=== PATIENT | male | born 1995 | race American Indian/Alaskan Native ===

== ENCOUNTER 2016-10-17 23:32 | Emergency (ER) | payer SELFPAY ==
[~2016-10-17] VITALS: Ht 172.7 cm; Wt 64.0 kg
[2016-10-18] MEDS ORDERED: AMOXICILLIN 500 MG (POLYMOX) CAP PO STA (01:06)
[2016-10-18] MEDS ORDERED: AMOX500T2 PO (01:18)
--- NOTE | 2016-10-18 01:18 | ED General ---
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 He denies any cough. He has been taking Tylenol and ibuprofen but symptoms seemed to return. He was seen at the [employer] [facility] and reports he was instructed to take ibuprofen but no other instructions were provided. Allergies and Home Medications Allergies Coded Allergies: No Known Drug Allergies (Unverified , 10/17/16) Home Medications Amoxicillin 500 Mg Tablet #40 1,000 MG PO BID Prescribed by: NASEEM DELA CRUZ on 10/18/16 0118 Constitutional: see HPI EENTM: see HPI Respiratory: no symptoms reported Cardiovascular: no symptoms reported Gastrointestinal: no symptoms reported Genitourinary: no symptoms reported Musculoskeletal: no symptoms reported Skin: no symptoms reported Psychiatric/Neurological: See HPI Hematologic/Lymphatic: No Symptoms Reported Past Gcxxenw-Gpbbaj-Bvddvz Hx Patient Social History Alcohol Use: Denies Use Recreational Drug Use: No Smoking Status: Current Everyday Smoker Type Used: Cigarettes 2nd Hand Smoke Exposure: Yes Recent Foreign Travel: No Contact w/Someone Who Travel: No Recent Infectious Disease Expo: No Recent Hopitalizations: No Immunizations Up To Date Tetanus Booster (TDap): Less than 5yrs PED Vaccines UTD: Yes Seasonal Allergies Seasonal Allergies: No Surgeries HX Surgeries: Yes Surgeries: Appendectomy Respiratory Hx Respiratory Disorders: No Cardiovascular Hx Cardiac Disorders: No Neurological Hx Neurological Disorders: No Reproductive System Hx Reproductive Disorders: No Genitourinary Hx Genitourinary Disorders: No Gastrointestinal Hx Gastrointestinal Disorders: No Musculoskeletal Hx Musculoskeletal Disorders: No Endocrine Hx Endocrine Disorders: No HEENT HX ENT Disorders: No Cancer Hx Cancer: No Psychosocial Hx Psychiatric Problems: No Integumentary HX Skin/Integumentary Disorder: No Blood Transfusions Hx Blood Disorders: No Physical Exam Vital Signs Vital Sign - Last 12Hours 10/17/16 23:48 Temp 98.9 Pulse 94 Resp 18 B/P 148/96 Pulse Ox 98 O2 Delivery Room Air Capillary Refill : Less Than 3 Seconds General Appearance: No Apparent Distress WD/WN HEENT: PERRL/EOMI TMs Normal Normal ENT Inspection Pharyngeal Erythema Neck: Supple Lymphadenopathy (L) Lymphadenopathy (R) Respiratory: Lungs Clear Normal Breath Sounds No Accessory Muscle Use No Respiratory Distress Cardiovascular: Regular Rate, Rhythm No Edema No Murmur Gastrointestinal: Normal Bowel Sounds Non Tender Soft Extremity: Normal Inspection Neurologic/Psychiatric: Alert Oriented x3 No Motor/Sensory Deficits Normal Mood/Affect collar baster jumpbasting II-XII Norm as Tested Skin: Normal Color Warm/Dry Progress/Results/Core Measures Results/Orders Lab Results Laboratory Tests Test 10/18/16 00:48 Range/Units Group A Streptococcus Screen NEGATIVE NEGATIVE Micro Results Microbiology 10/17/16 Influenza Types A,B Antigen (POOL) - Final, Complete My Orders Orders-NASEEM RAZO MD Influenza A And B Antigens (10/17/16 23:46) Rapid Strep A Screen (10/18/16 00:47) Amoxicillin Capsule (Polymox Capsule) (10/18/16 01:06) Vital Signs/I&O Vital Sign - Last 12Hours 10/17/16 10/17/16 10/18/16 23:48 23:48 01:23 Temp 98.9 98.0 Pulse 94 88 Resp 18 18 B/P 148/96 Pulse Ox 98 99 O2 Delivery Room Air Room Air Blood Pressure Mean: 113 Progress Note : Progress Note Rapid strep and influenza screens were negative. Because of patient's persistent sore throat and pharyngeal erythema, and bodyaches were prescribed. The first dose of amoxicillin was provided in the ER. I advised him to seek testing for mononucleosis if antibiotics do not resolve his problem. Departure Impression Impression: Primary Impression: Pharyngitis Qualified Code: J02.9 - Acute pharyngitis, unspecified Additional Impressions: Fever Qualified Code: R50.9 - Fever, unspecified Dizziness Disposition: 01 HOME, SELF-CARE Condition: Stable Departure-Patient Inst. Decision time for Depature: 01:13 Referrals: NO,LOCAL PHYSICIAN (PCP) Primary Care Physician Patient Instructions: Sore Throat in Adults Add. Discharge Instructions: Complete your antibiotics as prescribed. Your throat culture should result in about 48 hours. You may follow-up with the [facility] to review results. If you are not improving on the antibiotics, consider getting tested for mononucleosis at the [facility]. Return to emergency room if symptoms worsen. You may take ibuprofen up to 600 mg every 6 hours as needed for pain. Add Tylenol (acetaminophen) up to 1000 g every 6 hours as needed for additional pain relief. All discharge instructions reviewed with patient and/or family. Voiced understanding. Scripts Amoxicillin 500 Mg Tablet1,000 Mg PO BID #40 TAB Prov:NASEEM RAOZ MD 10/18/16 NASEEM RAZO MD Oct 18, 2016 01:18
[2016-10-18 01:23] VITALS: BP 136/88
== END 2016-10-18 01:23 | disposition home or self-care (01) ==
LOC: ER 23:37
DX: J02.9 Acute pharyngitis, unspecified (principal); R50.9 Fever, unspecified; R42 Dizziness and giddiness; F17.210 Nicotine dependence, cigarettes, uncomplicated
CPT/HCPCS: 87430; 87804; 99282

== ENCOUNTER 2016-10-26 14:49 | Emergency (ER) | payer OTHER ==
[~2016-10-26] VITALS: Ht 172.7 cm; Wt 64.0 kg
[~2016-10-26 14:49] MED LIST: AMOX500T2 PO
--- NOTE | 2016-10-26 15:23 | ED Integumentary General ---
General Stated Complaint: RASH Source: patient Exam Limitations: no limitations History of Present Illness Time seen by provider: 15:21 Initial Comments To ER with a diffuse rash that started this morning upon awakening. He finished a course of amoxicillin for 7 days yesterday following a diagnosis of pharyngitis. No fevers and the throat is better. The rash is itchy. Timing/Duration: this morning Severity: mild Location: generalized Possible Cause: no cause identified Allergies and Home Medications Allergies Coded Allergies: No Known Drug Allergies (Unverified , 10/17/16) Home Medications Amoxicillin 500 Mg Tablet #40 1,000 MG PO BID Prescribed by: NASEEM DELA CRUZ on 10/18/16 0118 Constitutional: see HPI EENTM: see HPINo eye pain, No hoarseness, No mouth pain, No mouth swelling, No vision loss Respiratory: no symptoms reportedNo dyspnea on exertion, No orthopnea, No phlegm, No short of breath Cardiovascular: no symptoms reported Genitourinary: no symptoms reported Musculoskeletal: no symptoms reported Skin: see HPI Psychiatric/Neurological: No Symptoms Reported Endocrine: No Symptoms Reported Hematologic/Lymphatic: No Symptoms Reported Past Jsxbjal-Nfidwz-Lxeifz Hx Patient Social History Type Used: Cigarettes 2nd Hand Smoke Exposure: Yes Recent Foreign Travel: No Contact w/Someone Who Travel: No Recent Hopitalizations: No Immunizations Up To Date Tetanus Booster (TDap): Less than 5yrs PED Vaccines UTD: Yes Seasonal Allergies Seasonal Allergies: No Surgeries HX Surgeries: Yes Surgeries: Appendectomy Respiratory Hx Respiratory Disorders: No Cardiovascular Hx Cardiac Disorders: No Neurological Hx Neurological Disorders: No Reproductive System Hx Reproductive Disorders: No Genitourinary Hx Genitourinary Disorders: No Gastrointestinal Hx Gastrointestinal Disorders: No Musculoskeletal Hx Musculoskeletal Disorders: No Endocrine Hx Endocrine Disorders: No HEENT HX ENT Disorders: No Cancer Hx Cancer: No Psychosocial Hx Psychiatric Problems: No Integumentary HX Skin/Integumentary Disorder: No Blood Transfusions Hx Blood Disorders: No Physical Exam Vital Signs Capillary Refill : General Appearance: WD/WN no apparent distress HEENT: PERRL/EOMI normal ENT inspection Neck: non-tender full range of motion Respiratory: no respiratory distress no accessory muscle use Gastrointestinal: non tender soft Neurologic/Psychiatric: alert normal mood/affect oriented x 3 Skin: normal color warm/dry rash (diffuse maculopapular rash) Skin Problem Character: macules, papules Departure Impression Impression: Primary Impression: Adverse drug reaction Qualified Code: T88.7XXA - Unspecified adverse effect of drug or medicament, initial encounter Disposition: 01 HOME, SELF-CARE Condition: Stable Departure-Patient Inst. Decision time for Depature: 15:23 Referrals: NO,LOCAL PHYSICIAN (PCP) Primary Care Physician Patient Instructions: MEDICATION REACTION Add. Discharge Instructions: 1. You should consider herself allergic to amoxicillin from this point on 2. Return to ER for any concerns 3. Use Benadryl [id number] as needed for itching. AURA MATHIS APRN Oct 26, 2016 15:23
[2016-10-26] MEDS ORDERED: diphenhydrAMINE 25 MG TAB (BENADRYL) PO ONE (15:30)
[2016-10-26] MEDS ORDERED: DEXAMETHASONE PF 10 MG/ML (DECADRON) VIAL IM ONE (15:30)
[2016-10-26 15:34] VITALS: BP 145/94
--- OUTSIDE RECORDS SUMMARY | 2016-10-26 16:28 | XMS REPORT | Continuity of Care Document ---
Author Author [facility] Organization [facility] Address Unknown Phone Unavailable Care Team Providers Care Disability Coordinator Name Role Phone NO, LOCAL PHYSICIAN PCP Unavailable Insurance Providers Payer Name Policy Number Subscriber Name Relationship Unknown Advance Directives Directive Response Recorded Date/Time Advance Directives No 10/17/16 11:48pm Resuscitation Status Full Code 10/17/16 11:48pm Chief Complaint and Reason for Visit Chief Complaint Cough/Cold/Flu Symptoms Reason for Visit Fever Dizziness Pharyngitis Problems Active Problems Medical Problem Onset Date Status Dizziness Unknown Acute Fever Unknown Acute Pharyngitis Unknown Acute Medications Current Home Medications Medication Dose Units Route Directions Days/Qty Instructions Start Date Amoxicillin 500 Mg 1,000 Mg Oral Twice A Day 40 10/18/16 Social History Social History Problem Response Recorded Date/Time Alcohol Use Denies Use 10/17/2016 11:48pm Recreational Drug Use No 10/17/2016 11:48pm Recent Foreign Travel No 10/17/2016 11:48pm Recent Infectious Disease Exposure No 10/17/2016 11:48pm Hospitalization with Isolation Denies 10/17/2016 11:48pm Smoking Status Current Everyday Smoker 10/17/2016 11:48pm Type Used Cigarettes 10/17/2016 11:48pm Recent Hopitalizations No 10/17/2016 11:48pm Hospitalization with Isolation Denies 10/17/2016 11:48pm Query Response Start Date Stop Date Smoking Status Current Everyday Smoker Hospital Discharge Instructions No hospital discharge instructions. Plan of Care Discharge Date 10/18/16 1:23am Disposition 01 HOME, SELF-CARE Condition at Discharge Stable Instructions/Education Provided Sore Throat in Adults Prescriptions See Medication Section Referrals NO,LOCAL PHYSICIAN - Primary Care Physician Additional Instructions/Education Complete your antibiotics as prescribed. Your throat culture should result in about 48 hours. You may follow-up with the [facility] to review results. If you are not improving on the antibiotics, consider getting tested for mononucleosis at the [facility]. Return to emergency room if symptoms worsen. You may take ibuprofen up to 600 mg every 6 hours as needed for pain. Add Tylenol (acetaminophen) up to 1000 g every 6 hours as needed for additional pain relief. All discharge instructions reviewed with patient and/or family. Voiced understanding. Functional Status No functional status results. Allergies, Adverse Reactions, Alerts No known allergies. Immunizations No immunization records. Vital Signs Acute Vital Signs Vital Response Date/Time Temperature (Fahrenheit) 98.9 degrees F (97.6 - 99.5) 10/17/2016 11:48pm Temperature (Calculated Celsius) 37.56582 degrees C (36.4 - 37.5) 10/17/2016 11:48pm Temperature Source Temporal 10/17/2016 11:48pm Pulse Rate (adult) 94 bpm (60 - 90) 10/17/2016 11:48pm Respiratory Rate 18 bpm (12 - 24) 10/17/2016 11:48pm O2 Sat by Pulse Oximetry 98 % (88 - 100) 10/17/2016 11:48pm Blood Pressure 148/96 mm Hg 10/17/2016 11:48pm Blood Pressure Mean 113 mm Hg 10/17/2016 11:48pm Pain Numeric Pain Scale 4 10/17/2016 11:48pm Height (Feet) 5 feet 10/17/2016 11:48pm Height (Inches) 8 inches 10/17/2016 11:48pm Height (Calculated Centimeters) 172.782214 cm 10/17/2016 11:48pm Weight (Pounds) 141 pounds 10/17/2016 11:48pm Weight (Calculated Kilograms) 63.627911 kilograms 10/17/2016 11:48pm Capillary Refill Capillary Refill Less Than 3 Seconds 10/17/2016 11:48pm Height 5 ft 8 in Weight 141 lb Body Mass Index 21.4 kg/m^2 Results Laboratory Results Test Name Result Units Flags Reference Collection Date/Time Result Date/ Time Comments Group A Streptococcus Screen NEGATIVE NEGATIVE 10/18/2016 12:48am 12:56am Procedures No known history of procedures. Encounters Encounter Location Arrival/Admit Date Discharge/Depart Date Attending Provider Departed Emergency Room [facility] 10/17/16 11:37pm 1:23am NASEEM RAZO MD Recent Diagnosis
== END 2016-10-26 15:35 | disposition home or self-care (01) ==
LOC: EDUNIT# 14:49 → ER 14:51
DX: R21 Rash and other nonspecific skin eruption (principal); T36.0X5A Adverse effect of penicillins, initial encounter
CPT/HCPCS: 96372; 99282